=== PATIENT | female | born 1955 | race Caucasian/White ===

== ENCOUNTER → 2023-04-11 09:28 | Outpatient (REF) | payer MEDICARE, SELFPAY | LOC: RAD 09:28 | PROVIDERS: ATTENDING PHYSICIAN Internal Medicine | DX: M81.0 Age-related osteoporosis without current pathological fracture (principal) | CPT/HCPCS: 77080 ==

== ENCOUNTER → 2023-10-10 11:20 | Outpatient (REF) | payer MEDICARE, SELFPAY | LOC: HWWDC 11:20 | PROVIDERS: ATTENDING PHYSICIAN Internal Medicine | DX: Z12.31 Encounter for screening mammogram for malignant neoplasm of breast (principal) | CPT/HCPCS: 77063; 77067 ==

== ENCOUNTER 2024-05-18 08:50 | Emergency (ER) | payer MEDICARE, SELFPAY ==
[2024-05-18 08:53] VITALS: BP 165/79
--- NOTE | 2024-05-18 10:19 | ED.GENMED ---
History of Present Illness
General
Chief Complaint: Eye Problems
Time Seen by Provider: 05/18/24 10:09
History of Present Illness
History of Present Illness:
69-year-old female presents the emergency department for evaluation of bilateral eye swelling and redness with clear discharge for the past 2 days. She notes she has had a sore throat mild dry cough for the past 5 days. No fevers or blurry vision.
Does wear 1 contact in the right eye. Denies purulent discharge but the eyes are crusted shut in the morning. No chest pain or shortness of breath. No dizziness or lightheadedness
Past History
Past History
ED Past Medical History: None
ED Past Surgical History: None
Review of Systems
Review of Systems
Allergies reviewed?: Yes
All Other Systems: ROS reviewed and negative except as documented in HPI and ROS
Phy Exam
Physical Exam
Physical Exam:
GEN: Well appearing, NAD, WDWN
HEENT: Oral mucosa moist, no scleral icterus. Bilateral conjunctival injection with copious clear discharge, no hyphema or hypopyon bilaterally. Mild periorbital swelling bilaterally, oropharynx clear with no erythema. No palpable preauricular or
anterior cervical chain adenopathy bilaterally
Cardiac: Regular rate
Lung: No respiratory distress, no tachypnea
MSK: No gross deformity or injuries
Skin: Good color, no pallor or jaundice, no rashes
Neuro: AO x3, moves all extremities freely
Psych: Calm, cooperative
Course
Vital Signs
Initial and Last Documented VS:
Initial Vital Signs
Temp Pulse Resp BP Pulse Ox
98.1 F 62 17 165/79 97
05/18/24 08:53 05/18/24 08:53 05/18/24 08:53 05/18/24 08:53 05/18/24 08:53
Last Documented Vital Signs
Temp Pulse Resp BP Pulse Ox
98.1 F 62 17 165/79 97
05/18/24 08:53 05/18/24 08:53 05/18/24 08:53 05/18/24 08:53 05/18/24 08:53
MDM/Problems Addressed
MDM/Problems Addressed:
Likely self-limited viral conjunctivitis however will prescribe topical antibiotics for supportive care
*Critical Care Note
Total Time (30-74mins, 75-104mins- exclusive of procedures): Not Applicable
ED Attending Note
-
Portions of this chart may have been created with voice recognition software.� Occasional wrong word or��sound alike� substitutions may have occurred due to the inherent limitations of voice recognition software.
Discharge Plan
Departure
Patient Disposition: Home (Routine Discharge)
Date of Disposition: 05/18/24
Time of Disposition: 10:19
Patient with high blood pressure during this ER visit?: No
Discharge Problem:
Acute viral conjunctivitis of both eyes
Instructions: Conjunctivitis (Pinkeye) (DC)
Prescriptions:
New
polymyxin B sulf-trimethoprim 10,000 unit- 1 mg/mL drops
2 drp ophthalmic (eye) Q4 Qty: 10 0RF
Rx Instructions:
2 gtt both eyes q4h x 3 days, then 2 gtt both eyes q8h x 4 days
Interventions
Interventions:
*Risk Screen - Suicide Last Done: 05/18/24 08:55
*General Assessment Last Done: 05/18/24 08:55
*Neglect/Abuse Screening Last Done: 05/18/24 08:55
*ED COVID-19 Vaccine History Last Done: 05/18/24 08:55
*Nursing Disposition Last Done: 05/18/24 10:20
Discharge Date and Time
Discharge Date/Time: 05/18/24 10:20
Print Language: OCCITAN
== END 2024-05-18 10:20 | disposition home or self-care (01) ==
LOC: EMR 08:50
PROVIDERS: EMERGENCY PHYSICIAN Emergency Medicine; FAMILY PHYSICIAN Internal Medicine
DX: B30.9 Viral conjunctivitis, unspecified (principal); J02.9 Acute pharyngitis, unspecified; R05.9 Cough, unspecified
CPT/HCPCS: 99283

== ENCOUNTER → 2024-12-05 14:06 | Outpatient (REF) | payer MEDICARE, SELFPAY | LOC: HWWDC 14:06 | PROVIDERS: ATTENDING PHYSICIAN Internal Medicine | DX: Z12.31 Encounter for screening mammogram for malignant neoplasm of breast (principal) | CPT/HCPCS: 77063; 77067 ==